=== PATIENT | male | born 1985 | race Caucasian/White ===

== ENCOUNTER → 2016-05-26 | Outpatient (REF) ==
--- NOTE | 2016-05-26 15:26 | REP ---
Clinical: Pain and disability . Technique: Internal rotation, external rotation, and Y view right shoulder . Findings: No acute fracture or dislocation. The acromioclavicular and glenohumeral joints are intact. No periarticular calcifications or degenerative changes are appreciated. Sub acromial space is normal. Surrounding soft tissues are unremarkable. Impression: Normal age appropriate right shoulder radiographs. Signed by Twin Cates MD 05/26/2016 03:18 P
--- NOTE | 2016-05-26 15:27 | REP ---
Clinical: Pain and disability . Technique: AP, lateral, bilateral oblique views left ankle . Findings: No acute fracture or dislocation. Skeletal structures and joint spaces are intact and normal. Ankle mortise appears stable. No subcutaneous emphysema or radiodense foreign body. Impression: Normal age appropriate left ankle radiograph series. Signed by Twin Cates MD 05/26/2016 03:19 P
--- NOTE | 2016-05-26 15:27 | REP ---
Clinical: Chest pain . Comparison: 06/10/2014 . Technique: PA and lateral. Findings: The mediastinum and cardiac silhouette are normal. Subtle bibasilar atelectasis cannot be excluded. No focal consolidation, effusion, or pneumothorax. Skeletal structures intact. Impression: Question trace basilar atelectasis. Signed by Twin Cates MD 05/26/2016 03:18 P
== END ==
LOC: M SMT 14:34
PROVIDERS: ATTEND Internal Medicine
DX: Z02.71 Encounter for disability determination (principal); M54.5 Low back pain

== ENCOUNTER → 2016-06-12 | Outpatient (CLI) | payer OTHER ==
[~2016-06-12] MED LIST: E-Z-GAS II EFFERVESCENT PACKET (SODIUM BICARB./CITRIC ACID/SIMETHICONE) As Ordered ONE; E-Z-HD 98% w/w 340GM SUSP BTL As Ordered ONE
--- NOTE | 2016-06-12 10:31 | REP ---
Upper GI series: Double contrast study. History: Gastroesophageal reflux disease. Fluoroscopy time is 1 minute 57 seconds. One overhead spot radiograph, three last image hold fluoroscopic views, and 19 fluoroscopic spot images are obtained. Findings: Preliminary medical underwriter radiograph is noncontributory. Normal bowel gas pattern. The oropharyngeal phase of the barium swallow shows no motor discoordination. There is mild mucosal irregularity of the distal esophagus consistent with reflux esophagitis. No stricture is seen. No hiatal hernia is noted. Reflux was not witnessed during the fluoroscopic portion of the exam. The stomach displays normal rugal folds and a normal mucosal pattern. No mass or ulcer seen. Duodenal bulb was fully distensible. C-loop is not widened. Remainder of the visualized small bowel loops are unremarkable. Impression: Evidence of mild to moderate reflux esophagitis. No stricture is seen. No hiatal hernia noted. Signed by Trung Hein MD 06/12/2016 10:45 A
== END ==
LOC: M RAD 08:29
PROVIDERS: ATTEND Internal Medicine
DX: K21.9 Gastro-esophageal reflux disease without esophagitis (principal)

== ENCOUNTER → 2017-05-20 | Outpatient (CLI) | payer OTHER | LOC: M SLEEP 19:23 | DX: G47.33 Obstructive sleep apnea (adult) (pediatric) (principal) ==

== ENCOUNTER → 2024-01-07 | Outpatient (REF) | payer OTHER | LOC: M LAB REF 12:28 | PROVIDERS: ATTEND Family Medicine | DX: G90.522 Complex regional pain syndrome I of left lower limb (principal) ==